=== PATIENT | male | born 1980 | race Caucasian/White ===

== ENCOUNTER 2018-09-07 15:05 | Emergency (ER) | payer SELFPAY ==
[2018-09-07 15:23] VITALS: BP 119/78; PULSE 75; RESP 18; TEMP 98.3; O2SAT 98
--- NOTE | 2018-09-07 16:03 | C.PDOC ---
History Of Present Illness 37 year old male presents to ED complaining of lower back pain. Patient states he fell and hit his lower back yesterday evening. Denies bowel/bladder dysfunction or weakness on lower extremities. Time Seen by Provider: 09/07/18 15:43 Chief Complaint (Nursing): Back Pain History Per: Patient History/Exam Limitations: no limitations Onset/Duration Of Symptoms: Days Current Symptoms Are (Timing): Still Present Past Medical History Reviewed: Historical Data, Nursing Documentation, Vital Signs Vital Signs: Last Vital Signs Temp 98.3 F 09/07/18 15:21 Pulse 75 09/07/18 15:21 Resp 18 09/07/18 15:21 BP 119/78 09/07/18 15:21 Pulse Ox 98 09/07/18 15:21 - Medical History PMH: No Chronic Diseases Surgical History: No Surg Hx Family History: States: No Known Family Hx - Social History Hx Tobacco Use: No Hx Alcohol Use: Yes Hx Substance Use: No - Immunization History Hx Tetanus Toxoid Vaccination: No Hx Influenza Vaccination: No Hx Pneumococcal Vaccination: No Review Of Systems Except As Marked, All Systems Reviewed And Found Negative. Musculoskeletal: Positive for: Back Pain (lower) Neurological: Negative for: Weakness, Numbness Physical Exam - Physical Exam Appears: Non-toxic, No Acute Distress Skin: Warm, Dry Head: Atraumatic, Normacephalic Eye(s): bilateral: Normal Inspection Oral Mucosa: Moist Neck: Supple Chest: Symmetrical Cardiovascular: Rhythm Regular, No Murmur Respiratory: Normal Breath Sounds, No Rales, No Rhonchi, No Wheezing Gastrointestinal/Abdominal: Normal Exam Back: No Vertebral Tenderness, Other (diffuse muscular tenderness to lower back) Extremity: Bilateral: Normal Color And Temperature, Normal ROM Neurological/Psych: Oriented x3, Normal Speech, Normal Motor, Normal Sensation ED Course And Treatment O2 Sat by Pulse Oximetry: 98 (RA) Pulse Ox Interpretation: Normal Medical Decision Making Medical Decision Making: Plan: --Lumbar Spine X-Ray --Flexeril --Motrin Lumbar spine XR showed normal alignment and no fractures. Disposition Counseled Patient/Family Regarding: Diagnosis, Need For Followup - Disposition Disposition: HOME/ ROUTINE Disposition Time: 16:10 Condition: STABLE Prescriptions: Ibuprofen [Motrin] 600 mg PO TID #20 tab Methocarbamol [Robaxin] 500 mg PO BID 7 Days #18 tab Instructions: Lumbar Muscle Strain (DC) Forms: General Discharge Instructions, [facility] (Samoan), Work Excuse - Clinical Impression Clinical Impression: Contusion of back, Low back strain - Scribe Statement The provider has reviewed the documentation as recorded by the Ektaibjesus Yates Provider Attestation: All medical record entries made by the Ektaibe were at my direction and personally dictated by me. I have reviewed the chart and agree that the record accurately reflects my personal performance of the history, physical exam, medical decision making, and the department course for this patient. I have also personally directed, reviewed, and agree with the discharge instructions and disposition.
--- NOTE | 2018-09-07 16:48 | RAD ---
Lumbar spine three views HISTORY: Trauma. COMPARISON: None available. Findings: Calcified phleboliths in the pelvis. Spinal alignment is maintained. Vertebral body heights are preserved. No evidence of acute displaced fracture. Lower level facet hypertrophy. Impression: Degenerative changes. If pain persists, consider MRI.
== END 2018-09-07 16:14 | disposition home or self-care (01) ==
LOC: C.ER 15:05
DX: S30.0XXA Contusion of lower back and pelvis, initial encounter (principal); S39.012A Strain of muscle, fascia and tendon of lower back, initial encounter; W01.198A Fall on same level from slipping, tripping and stumbling with subsequent striking against other object, initial encounter; Y92.002 Bathroom of unspecified non-institutional (private) residence as the place of occurrence of the external cause